=== PATIENT | female | born 1975 | race American Indian/Alaskan Native ===

== ENCOUNTER 2017-01-12 20:11 | Emergency (ER) | payer SELFPAY | END 2017-01-12 21:31 | disposition left against medical advice (07) | LOC: ED 20:11 | DX: R10.9 Unspecified abdominal pain (principal); Z53.21 Procedure and treatment not carried out due to patient leaving prior to being seen by health care provider ==

== ENCOUNTER 2017-01-31 23:50 | Emergency (ER) | payer OTHER ==
[2017-02-01 01:10] LABS: Basophils % (Auto) 0.4 % (0.0-1.8); Eosinophils % (Auto) 3.1 % (0.0-4.3); Hematocrit 42.6 % (30.3-42.9); Hemoglobin 14.2 gm/dl (10.1-14.3); Mean Corpuscular HGB Conc 33 % (30-34); Mean Corpuscular Hemoglobin 32 pg (28-32); Mean Corpuscular Volume 95 fl (79-97); Platelet Count 265 K/mm3 (140-440); Red Blood Count 4.49 M/mm3 (3.65-5.03); Red Cell Distribution Width 12.6 % (13.2-15.2); White Blood Count 8.7 K/mm3 (4.5-11.0)
[2017-02-01 01:32] LABS: Alanine Aminotransferase 19 units/L (7-56); Albumin 4.2 g/dL (3.9-5); Albumin/Globulin Ratio 1.5 %; Alkaline Phosphatase 64 units/L (35-129); Anion Gap 17 mmol/L; Blood Urea Nitrogen 19 mg/dL (7-17); Calcium 8.9 mg/dL (8.4-10.2); Carbon Dioxide 24 mmol/L (22-30); Glucose 131 mg/dL (65-100); Lipase 26 units/L (13-60); Sodium 142 mmol/L (137-145)
[2017-02-01 02:28] LABS: Bilirubin,Urine NEG (Negative); Blood,Urine NEG (Negative); Ketones,Urine NEG (Negative); Leukocyte Esterase,Urine TR (Negative); Nitrite,Urine NEG (Negative); Protein,Urine <15 mg/dL mg/dL (Negative); Urobilinogen,Urine < 2.0 mg/dL (<2.0)
--- NOTE | 2017-02-01 02:46 | Ultrasound Report ---
FINAL REPORT PROCEDURE: US ABDOMEN LIMITED TECHNIQUE: Real-time sonography in multiple planes of the gallbladder fossa and CBD with imaging of the adjacent liver, pancreas, and right kidney was performed with image documentation. CPT 66324 HISTORY: RUQ pain COMPARISON: No prior studies are available for comparison. FINDINGS: Liver: There is fatty infiltration of the liver. There is no mass.. Gallbladder: There are multiple gallstones. There is no wall thickening or pericholecystic fluid.. Intrahepatic bile ducts: Normal . Extrahepatic bile ducts: Normal . Pancreas: Normal as visualized with suboptimal depiction of the pancreatic tail. Right kidney: Normal echotexture. No focal renal mass, calculus, or hydronephrosis. Other: No free fluid. IMPRESSION: There is cholelithiasis without evidence of cholecystitis. There is no biliary ductal dilatation. There is fatty infiltration of the liver.
[2017-02-01] MEDS ORDERED: CATAPRES ONE (05:05)
[2017-02-01] MEDS ORDERED: CATAPRES PO ONE (05:12)
[2017-02-01] MEDS ORDERED: TORADOL IV ONE (10:18)
[2017-02-01] MEDS ORDERED: ZOFRAN IV ONE (10:18)
[2017-02-01] MEDS ORDERED: DILAUDID IV ONE (10:18)
--- NOTE | 2017-02-01 10:19 | Emergency Department Report ---
ED General Adult HPI - General Chief complaint: Abdominal Pain Stated complaint: SEVERE ABD PAIN Time Seen by Provider: 02/01/17 09:28 Source: patient, RN notes reviewed Mode of arrival: Ambulatory Limitations: No Limitations - History of Present Illness Initial comments: This is a 41-year-old female. She is previously unknown to me. She presents to the ER with right upper quadrant pain which is intermittent for 4 weeks. The pain waxes and wanes. It does not radiate anywhere. It increases with palpation. It decreases with rest. No fevers or chills. No chest pain or shortness of breath. Of note, the patient does have a history of pulmonary embolus, diagnosed in 1994 , which was associated. The patient reports that last , the patient had a flight to [place], which was 2 hours in total. She reports that there is a layover, and reports that each leg of the flight was 45 minutes in total. There is no leg pain. There is no leg swelling. The patient reports her pain did not change or get worse after her airplane trip. In the emergency room, the patient was found to have mild right upper quadrant tenderness, normal laboratory studies, and a right upper quadrant ultrasound demonstrated multiple gallstones without stigmata of cholecystitis. The patient was treated with pain medication, and nausea medication, and her symptoms and pain improved dramatically. I personally had an extensive discussion with the patient and her family. I told the patient I thought it was very unlikely that she had a concomitant episode of biliary colic and pulmonary embolus. Given that the patient has no chest pain or shortness of breath, she is not hypoxic, I think pulmonary embolus is very unlikely. This was discussed extensively with the patient and family and they agreed, and we will not pursue workup for pulmonary embolus, given appropriate alternative diagnosis for her right upper quadrant abdominal pain. The patient will be discharged with pain medication, nausea medication, instructions to follow up with outpatient general surgery. Patient was instructed to follow up with primary care regarding elevated blood pressure. -: Gradual Location: abdomen Radiation: non-radiation Severity scale (0 -10): 10 Quality: aching Improves with: medication Worsens with: movement Associated Symptoms: denies other symptoms, nausea/vomiting - Related Data Home Medications Medication Instructions Recorded Confirmed Last Taken Losartan/Hydrochlorothiazide 1 tab PO DAILY 06/23/14 02/01/17 01/13/16 [Losartan-Hctz 100-25 mg Tab] amLODIPine [Norvasc] 10 mg PO DAILY 02/01/17 02/01/17 01/13/16 Previous Rx's Medication Instructions Recorded Last Taken Type Ibuprofen [Motrin] 600 mg PO Q8H PRN #30 tablet 02/01/17 Unknown Rx Ondansetron [Zofran Odt] 4 mg PO QID PRN #20 tab.rapdis 02/01/17 Unknown Rx oxyCODONE [Roxicodone] 5 mg PO Q6HR PRN #15 tablet 02/01/17 Unknown Rx Allergies Allergy/AdvReac Type Severity Reaction Status Date / Time acetaminophen [From Tylenol] Allergy Unknown Verified 12/12/15 10:26 shellfish derived Allergy Anaphylaxis Verified 06/23/14 16:22 ED Review of Systems ROS: Stated complaint: SEVERE ABD PAIN Other details as noted in HPI Constitutional: denies: fever, malaise Eyes: denies: vision change ENT: denies: hearing loss Respiratory: denies: cough, shortness of breath Cardiovascular: denies: chest pain Gastrointestinal: abdominal pain, nausea Genitourinary: as per HPI Musculoskeletal: as per HPI Skin: as per HPI Neurological: as per HPI. denies: weakness Psychiatric: as per HPI ED Past Medical Hx - Past Medical History Hx Hypertension: Yes (6YRS, NO CP OR SOB) Hx Congestive Heart Failure: No Hx Diabetes: No Hx GERD: Yes Hx Asthma: No Hx COPD: No Additional medical history: PE 2013, cervical stenosis - Surgical History Additional Surgical History: , cervical spine surgery - Social History Smoking Status: Current Every Day Smoker Substance Use Type: None - Medications Home Medications: Home Medications Medication Instructions Recorded Confirmed Last Taken Type Losartan/Hydrochlorothiazide 1 tab PO DAILY 06/23/14 02/01/17 01/13/16 History [Losartan-Hctz 100-25 mg Tab] Ibuprofen [Motrin] 600 mg PO Q8H PRN #30 tablet 02/01/17 Unknown Rx Ondansetron [Zofran Odt] 4 mg PO QID PRN #20 tab.rapdis 02/01/17 Unknown Rx amLODIPine [Norvasc] 10 mg PO DAILY 02/01/17 02/01/17 01/13/16 History oxyCODONE [Roxicodone] 5 mg PO Q6HR PRN #15 tablet 02/01/17 Unknown Rx ED Physical Exam - General Limitations: No Limitations General appearance: alert, in no apparent distress - Head Head exam: Present: atraumatic, normocephalic - Eye Eye exam: Present: normal appearance, EOMI. Absent: nystagmus - ENT ENT exam: Present: normal exam, normal orophraynx, mucous membranes moist, normal external ear exam - Neck Neck exam: Present: normal inspection, full ROM. Absent: tenderness, meningismus - Respiratory Respiratory exam: Present: normal lung sounds bilaterally. Absent: respiratory distress, wheezes, rales, rhonchi, stridor, chest wall tenderness, accessory muscle use, decreased breath sounds, prolonged expiratory - Cardiovascular Cardiovascular Exam: Present: regular rate, normal rhythm, normal heart sounds. Absent: bradycardia, tachycardia, irregular rhythm, systolic murmur, diastolic murmur, rubs, gallop - GI/Abdominal GI/Abdominal exam: Present: soft, tenderness, normal bowel sounds, other (there is right upper quadrant tenderness, with no rebound, guarding or peritoneal signs, there is a negative Ernandez sign.). Absent: distended, guarding, rebound , rigid, pulsatile mass - Extremities Exam Extremities exam: Present: normal inspection, full ROM, normal capillary refill. Absent: tenderness, pedal edema, joint swelling, calf tenderness - Back Exam Back exam: Present: normal inspection, full ROM. Absent: tenderness, CVA tenderness (R), CVA tenderness (L), muscle spasm, paraspinal tenderness, vertebral tenderness - Neurological Exam Neurological exam: Present: alert, oriented X3, normal gait, other (Extraocular movements intact. Tongue midline. No facial droop. Facial sensation intact to light touch in the V1, V2, V3 distribution bilaterally. 5 and 5 strength in 4 extremities.. Sensation is intact to light touch in 4 extremities.). Absent : motor sensory deficit - Psychiatric Psychiatric exam: Present: normal affect, normal mood - Skin Skin exam: Present: warm, dry, intact, normal color. Absent: rash ED Course Vital Signs 02/01/17 02/01/17 02/01/17 00:22 04:52 05:14 Temperature 98.2 F 98.2 F Pulse Rate 85 76 76 Respiratory 22 16 Rate Blood Pressure 184/113 158/118 158/118 Blood Pressure [right'] O2 Sat by Pulse 98 100 Oximetry 02/01/17 02/01/17 02/01/17 08:46 10:00 11:00 Temperature Pulse Rate 67 67 68 Respiratory 18 18 18 Rate Blood Pressure Blood Pressure 150/86 161/85 146/85 [right'] O2 Sat by Pulse 95 99 95 Oximetry ED Medical Decision Making - Lab Data Result diagrams: 02/01/17 00:46 02/01/17 00:46 Vital Signs 02/01/17 02/01/17 02/01/17 00:22 04:52 05:14 Temperature 98.2 F 98.2 F Pulse Rate 85 76 76 Respiratory 22 16 Rate Blood Pressure 184/113 158/118 158/118 Blood Pressure [right'] O2 Sat by Pulse 98 100 Oximetry 02/01/17 02/01/17 08:46 10:00 Temperature Pulse Rate 67 67 Respiratory 18 18 Rate Blood Pressure Blood Pressure 150/86 161/85 [right'] O2 Sat by Pulse 95 99 Oximetry Lab Results 02/01/17 02/01/17 02/01/17 Range/Units 00:46 00:46 01:54 WBC 8.7 (4.5-11.0) K/mm3 RBC 4.49 (3.65-5.03) M/mm3 Hgb 14.2 (10.1-14.3) gm/dl Hct 42.6 (30.3-42.9) % MCV 95 (79-97) fl MCH 32 (28-32) pg MCHC 33 (30-34) % RDW 12.6 L (13.2-15.2) % Plt Count 265 (140-440) K/mm3 Lymph % (Auto) 28.7 (13.4-35.0) % [place] % (Auto) 10.0 H (0.0-7.3) % Eos % (Auto) 3.1 (0.0-4.3) % Baso % (Auto) 0.4 (0.0-1.8) % Lymph # 2.5 (1.2-5.4) K/mm3 [place] # 0.9 H (0.0-0.8) K/mm3 Eos # 0.3 (0.0-0.4) K/mm3 Baso # 0.0 (0.0-0.1) K/mm3 Seg Neutrophils % 57.8 (40.0-70.0) % Seg Neutrophils # 5.0 (1.8-7.7) K/mm3 Sodium 142 (137-145) mmol/L Potassium 4.0 (3.6-5.0) mmol/L Chloride 105.0 (98-107) mmol/L Carbon Dioxide 24 (22-30) mmol/L Anion Gap 17 mmol/L BUN 19 H (7-17) mg/dL Creatinine 0.4 L (0.7-1.2) mg/dL Estimated GFR > 60 ml/min BUN/Creatinine Ratio 47.50 % Glucose 131 H (65-100) mg/dL Calcium 8.9 (8.4-10.2) mg/dL Total Bilirubin 0.30 (0.1-1.2) mg/dL AST 17 (5-40) units/L ALT 19 (7-56) units/L Alkaline Phosphatase 64 (35-129) units/L Total Protein 7.0 (6.3-8.2) g/dL Albumin 4.2 (3.9-5) g/dL Albumin/Globulin Ratio 1.5 % Lipase 26 (13-60) units/L Urine Color Yellow (Yellow) Urine Turbidity Turbid (Clear) Urine pH 8.0 H (5.0-7.0) Ur Specific [place] 1.019 (1.003-1.030) Urine Protein <15 mg/dl (Negative) mg/dL Urine Glucose (UA) Neg (Negative) mg/dL Urine Ketones Neg (Negative) mg/dL Urine Blood Neg (Negative) Urine Nitrite Neg (Negative) Urine Bilirubin Neg (Negative) Urine Urobilinogen < 2.0 (<2.0) mg/dL Ur Leukocyte Esterase Tr (Negative) Urine WBC (Auto) 5.0 (0.0-6.0) /HPF Urine RBC (Auto) 6.0 (0.0-6.0) /HPF U Epithel Cells (Auto) 4.0 (0-13.0) /HPF Amorphous Crystals 1+ Urine Yeast (Budding) 2+ /HPF Urine HCG, Qual Negative (Negative) - Radiology Data Radiology results: report reviewed, image reviewed Right upper quadrant ultrasound demonstrates a presence of gallstones, there was no wall thickening or pericholecystic fluid. Critical care attestation.: If time is entered above; I have spent that time in minutes in the direct care of this critically ill patient, excluding procedure time. ED Disposition Clinical Impression: Biliary colic Disposition: DC-01 TO HOME OR SELFCARE Is pt being admited?: No Does the pt Need Aspirin: No Condition: Stable Instructions: Biliary Colic (ED) Additional Instructions: Take the pain medication, nausea medication as needed/directed. If taking the oxycodone for pain, do not drive, consume alcohol, or make important decisions. Avoid consumption of heavy, spicy, fatty foods. Follow up with a general surgeon within the next [address] Pearson is a local general surgeon. Dr. Foy is a local primary care doctor. Return to the ER right away with new pain, worsened pain, migration of pain, intractable nausea or vomiting, fevers or chills, confusion, inability to tolerate liquid feeds. Prescriptions: Ibuprofen [Motrin] 600 mg PO Q8H PRN #30 tablet PRN Reason: Pain Ondansetron [Zofran Odt] 4 mg PO QID PRN #20 tab.rapdis PRN Reason: Nausea oxyCODONE [Roxicodone] 5 mg PO Q6HR PRN #15 tablet PRN Reason: Pain Referrals: PRIMARY CARE, [Primary Care Provider] - 3-5 Days ARLYN PEARSON MD [Staff Physician] - 3-5 Days KENNETH FOY MD [Staff Physician] - 3-5 Days
[2017-02-01 11:27] VITALS: BP 146/85
== END 2017-02-01 11:58 | disposition home or self-care (01) ==
LOC: ED 23:50
DX: K80.50 Calculus of bile duct without cholangitis or cholecystitis without obstruction (principal); I10 Essential (primary) hypertension; K21.9 Gastro-esophageal reflux disease without esophagitis; F17.200 Nicotine dependence, unspecified, uncomplicated; Z91.013 Allergy to seafood; Z88.6 Allergy status to analgesic agent
CPT/HCPCS: 36415; 76705; 80053; 81001; 81025; 83690; 85025; 96374; 96375; 99284; J1170; J1885; J2405

== ENCOUNTER 2019-12-25 01:54 | Emergency (ER) | payer SELFPAY ==
--- NOTE | 2019-12-25 02:35 | XRay Report ---
CHEST 1 VIEW INDICATION: Chest Pain. COMPARISON: 12/09/2012 FINDINGS: Support devices: None. Heart: Within normal limits. Lungs/Pleura: No acute air space or interstitial disease. Additional findings: None. IMPRESSION: 1. No acute findings. Signer Name: Migel Gold MD Signed: 12/25/2019 2:31 AM Workstation Name: [id number]
[2019-12-25] MEDS ORDERED: MORPHINE 4 MG/1 ML INJ IV ONE (02:42)
[2019-12-25 02:46] LABS: Basophils # (Auto) 0.1 K/mm3 (0.0-0.1); Basophils % (Auto) 0.5 % (0.0-1.8); Eosinophils # (Auto) 0.5 K/mm3 (0.0-0.4); Eosinophils % (Auto) 4.3 % (0.0-4.3); Hematocrit 39.8 % (30.3-42.9); Hemoglobin 13.9 gm/dl (10.1-14.3); Lymphocytes # (Auto) 4.5 K/mm3 (1.2-5.4); Lymphocytes % (Auto) 39.5 % (13.4-35.0); Mean Corpuscular HGB Conc 35 % (30-34); Mean Corpuscular Volume 95 fl (79-97); Monocytes % (Auto) 9.3 % (0.0-7.3); Platelet Count 311 K/mm3 (140-440); Red Blood Count 4.18 M/mm3 (3.65-5.03); Red Cell Distribution Width 12.8 % (13.2-15.2)
--- NOTE | 2019-12-25 02:56 | Emergency Department Report ---
ED Chest Pain HPI - General Chief Complaint: Chest Pain Stated Complaint: CHEST PRESSURE Time Seen by Provider: 12/25/19 02:37 Source: patient Mode of arrival: Ambulatory Limitations: No Limitations - History of Present Illness Initial Comments: 44-year-old -[place] female presents to the emergency department with complaint of some midsternal to left-sided chest pain that is been going on for the past 3 days. She says it feels like a constant heaviness and sometimes it will be sharp. The pain will radiate towards her left upper back and shoulder blade where it feels more like a burning sensation. It is associated with some mild shortness of breath and this evening the patient had some nausea without vomiting. She has a past medical history of hypertension and has a remote history of a PE when she was . She is not currently on any blood thinners. Patient quit smoking tobacco about 2 to 3 months ago. She has a history of early cardiac disease in her father who had an AZ in his 40s and passed from 1 in his 50s. 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 No recent travel or sick contacts at home. - Related Data Home Medications Medication Instructions Recorded Confirmed Last Taken Losartan/Hydrochlorothiazide 1 tab PO DAILY 06/23/14 02/01/17 01/13/16 [Losartan-Hctz 100-25 mg Tab] amLODIPine [Norvasc] 10 mg PO DAILY 02/01/17 02/01/17 01/13/16 Previous Rx's Medication Instructions Recorded Last Taken Type Ibuprofen [Motrin] 600 mg PO Q8H PRN #30 tablet 02/01/17 Unknown Rx Ondansetron [Zofran Odt] 4 mg PO QID PRN #20 tab.rapdis 02/01/17 Unknown Rx oxyCODONE [Roxicodone] 5 mg PO Q6HR PRN #15 tablet 02/01/17 Unknown Rx Allergies Allergy/AdvReac Type Severity Reaction Status Date / Time acetaminophen [From Tylenol] Allergy Unknown Verified 12/12/15 10:26 shellfish derived Allergy Anaphylaxis Verified 06/23/14 16:22 Heart Score - HEART Score History: Slightly suspicious EKG: Normal Age: 45-65 Risk factors: > 3 risk factors or hx of atherosclerotic disease Troponin: < normal limit HEART Score: 3 - Critical Actions Critical Actions: 0-3 pts:0.9-1.7%risk of adverse cardiac event.Candidate for discharge ED Review of Systems ROS: Stated complaint: CHEST PRESSURE Other details as noted in HPI Comment: All other systems reviewed and negative Constitutional: denies: chills, fever Eyes: denies: eye pain, vision change ENT: denies: ear pain, throat pain Respiratory: shortness of breath. denies: cough Cardiovascular: chest pain. denies: palpitations Gastrointestinal: denies: abdominal pain, vomiting Genitourinary: denies: dysuria, discharge Musculoskeletal: denies: back pain, arthralgia Skin: denies: rash, lesions Neurological: denies: headache, weakness ED Past Medical Hx - Past Medical History Previous Medical History?: Yes Hx Hypertension: Yes (6YRS, NO CP OR SOB) Hx Congestive Heart Failure: No Hx Diabetes: No Hx GERD: Yes Hx Asthma: No Hx COPD: No Additional medical history: PE 2013, cervical stenosis - Surgical History Past Surgical History?: Yes Additional Surgical History: , cervical spine surgery - Social History Smoking Status: Never Smoker Substance Use Type: None - Medications Home Medications: Home Medications Medication Instructions Recorded Confirmed Last Taken Type Losartan/Hydrochlorothiazide 1 tab PO DAILY 06/23/14 02/01/17 01/13/16 History [Losartan-Hctz 100-25 mg Tab] Ibuprofen [Motrin] 600 mg PO Q8H PRN #30 tablet 02/01/17 Unknown Rx Ondansetron [Zofran Odt] 4 mg PO QID PRN #20 tab.rapdis 02/01/17 Unknown Rx amLODIPine [Norvasc] 10 mg PO DAILY 02/01/17 02/01/17 01/13/16 History oxyCODONE [Roxicodone] 5 mg PO Q6HR PRN #15 tablet 02/01/17 Unknown Rx ED Physical Exam - General Limitations: No Limitations - Other Other exam information: GENERAL: The patient is well-developed well-nourished. HENT: Normocephalic. Atraumatic. Patient has moist mucous membranes. EYES: Extraocular motions are intact. NECK: Supple. Trachea is midline. CHEST/LUNGS: Clear to auscultation. There is no respiratory distress noted. HEART/CARDIOVASCULAR: Regular. There is no tachycardia. There is no murmur. ABDOMEN: Abdomen is soft, nontender. Patient has normal bowel sounds. Obese habitus. SKIN: Skin is warm and dry. NEURO: The patient is awake, alert, and oriented. The patient is cooperative. The patient has no focal neurologic deficits. Normal speech. MUSCULOSKELETAL: There is no tenderness or deformity. There is no evidence of acute injury. ED Course Vital Signs 12/25/19 12/25/19 12/25/19 01:57 03:04 04:29 Temperature 98.9 F Pulse Rate 102 H 78 Respiratory 18 18 Rate Blood Pressure 192/118 120/86 Blood Pressure 126/80 [Left] O2 Sat by Pulse 97 100 Oximetry BUBBA score - Bubba Score Age > 65: (0) No Aspirin use within the Past 7 Days: (0) No 3 or more CAD Risk Factors: (1) Yes 2 or more Angina events in past 24 hrs: (1) Yes (If pain is considered angina) Known CAD with more than 50% Stenosis: (0) No Elevated Cardiac Markers: (0) No ST Deviation Greater than 0.5mm: (0) No BUBBA Score: 2 ED Medical Decision Making - Lab Data Result diagrams: 12/25/19 02:13 12/25/19 02:13 - EKG Data -: EKG Interpreted by Me EKG shows normal: sinus rhythm, axis (Left axis deviation), intervals, QRS complexes (LVH), ST-T waves Rate: normal - EKG Data When compared to previous EKG there are: previous EKG unavailable Interpretation: LVH - Radiology Data Radiology results: image reviewed interpreted by me: Chest x-ray does not show any acute process. There are no pleural effusions, obvious pneumonia and there is no pneumothorax. - Medical Decision Making This patient presents to the emergency department with a complaint of a few days of some left-sided chest pain with radiation towards the back. EKG does not show any signs of ST elevation [place]. Chest x-ray does not show any pneumonia, pleural effusions, pneumothorax, or any other acute process. Her labs have been unremarkable including negative troponins x2 and a negative d-dimer. The patient has a low heart and BUBBA score. She was given 1 low dose of IV analgesia with great improvement. She was reevaluated multiple times over multiple hours and says that her chest pain has completely resolved and the back pain greatly improved. For all these reasons patient appears safe for discharge home at this time. As per our low risk chest pain protocol the patient's contact information has been sent over to [facility] for close outpatient follow-up. In the meantime, the patient will return to the emergency department with any worsening of her symptoms or any acute distress. Critical Care Time: No Critical care attestation.: If time is entered above; I have spent that time in minutes in the direct care of this critically ill patient, excluding procedure time. ED Disposition Clinical Impression: Chest pain Qualifiers: Chest pain type: unspecified Qualified Code(s): R07.9 - Chest pain, unspecified Back pain Qualifiers: Back pain location: back pain in unspecified location Chronicity: unspecified Back pain laterality: unspecified Qualified Code(s): M54.9 - Dorsalgia, unspecified Disposition: TO HOME OR SELFCARE Is pt being admited?: No Condition: Stable Instructions: Chest Pain (ED) Additional Instructions: Please follow-up with your primary care physician in the next few days. I am sending your contact information to [facility] and someone from their office should be contacting you shortly for close outpatient follow- up. Just in case, I am also giving you a referral for Dr. Andersen, 1 of the cardiologists that works at [facility]. Return to the emergency department with any worsening of your symptoms or any acute distress. Referrals: TIP LARA MD [Primary Care Provider] - 2-3 Days SAUL ANDERSEN MD [Staff Physician] - 2-3 Days Time of Disposition: 05:30
[2019-12-25 03:07] LABS: BUN/Creatinine Ratio 34; Blood Urea Nitrogen 17 mg/dL (7-17); Hemolysis Index 1
[2019-12-25 04:29] VITALS: BP 120/86
== END 2019-12-25 05:30 | disposition home or self-care (01) ==
LOC: ED 01:54
DX: R07.89 Other chest pain (principal); M54.89 Other dorsalgia; I10 Essential (primary) hypertension; K21.9 Gastro-esophageal reflux disease without esophagitis; Z98.890 Other specified postprocedural states; Z79.899 Other long term (current) drug therapy; Z88.6 Allergy status to analgesic agent
CPT/HCPCS: 36415; 71045; 80048; 84484; 85025; 85379; 93005; 96374; 99284; J2270